=== PATIENT | female | born 1985 | race Caucasian/White ===

== ENCOUNTER → 2018-05-04 16:48 | Outpatient (CLI) | payer BC, SELFPAY ==
[2018-05-09 10:47] LABS: HPV APTIMA, High Risk Negative (Negative)
== END ==
PROVIDERS: Referring Provider Obstetrics & Gynecology; Visit Provider Obstetrics & Gynecology
DX: Z12.4 Encounter for screening for malignant neoplasm of cervix (principal)
CPT/HCPCS: 87624; 88175; G0145

== ENCOUNTER → 2019-04-30 17:02 | Outpatient (CLI) | payer BC, SELFPAY ==
[2019-04-30 11:57] VITALS: BMI 31.6
[2019-04-30 19:30] LABS: Chlamydia Trachomatis by PCR Negative (Negative); Neisserai gonorrhoeae by PCR Negative (Negative); Probe Check PASS; Sample Adequacy Control PASS; Specimen Processing Control PASS
== END ==
PROVIDERS: Family Provider Family Medicine Sports Medicine; PCP Family Medicine Sports Medicine; Referring Provider Obstetrics & Gynecology; Visit Provider Obstetrics & Gynecology
DX: Z34.90 Encounter for supervision of normal pregnancy, unspecified, unspecified trimester (principal)
CPT/HCPCS: 87086; 87088; 87491; 87591

== ENCOUNTER → 2019-05-17 15:06 | Outpatient (CLI) | payer BC, SELFPAY ==
[2019-05-17 14:45] VITALS: BMI 31.6
[2019-05-17 15:41] LABS: Absolute Lymphocyte Count 1.25 X10^3/uL (0.83-4.51); Absolute Neutrophil Count 5.5 X10^3/uL (2.0-7.7); Basophil# 0.03 X10^3/uL; Basophil% 0.4 % (0-1); Eosinophils% 1.3 % (0-5); Hematocrit 40.5 % (37-47); Hemoglobin 13.1 g/dL (12.0-15.0); Lymphocyte # 1.25 X10^3/ul (4.0); Lymphocyte % 16.9 % (19-41); Mean Corp Hgb Conc 32.3 g/dL (32-36); Mean Corpuscular Hgb 28.3 pg (27.0-32.0); Mean Corpuscular Volume 87.5 fL (81-99); Monocyte# 0.52 X10^3/uL; NRBC Flagged by Analyzer 0 % (0-5); Neutrophil % 74.3 % (47-70); Platelet Count 300 K/mm3 (150-450); RBC Distribution Width CV 13.1 % (11.6-14.6); RBC Distribution Width SD 42.1 fl (35.1-43.9); Red Blood Count 4.63 M/mm3 (4.2-5.4); White Blood Count 7.4 K/mm3 (4.4-11.0)
[2019-05-17 15:59] LABS: Glucose Challenge Gest 1H 50g 81 mg/dL (70-140)
[2019-05-18 10:07] LABS: HIV - WCH Non-Reactive (Nonreactive); Hepatitis B Surface Antigen Non-Reactive (Nonreactive); Rubella IgG 192.1 IU/mL
[2019-05-24 02:45] LABS: Rapid Plasmin Reagin (RPR) NONREACTIVE (NONREACTIVE)
== END ==
PROVIDERS: Family Provider Family Medicine Sports Medicine; PCP Family Medicine Sports Medicine; Referring Provider Obstetrics & Gynecology; Visit Provider Obstetrics & Gynecology
DX: O09.90 Supervision of high risk pregnancy, unspecified, unspecified trimester (principal); Z3A.00 Weeks of gestation of pregnancy not specified
CPT/HCPCS: 36415; 36430; 82950; 85025; 86592; 86703; 86762; 86850; 86870; 86880; 86900; 86901; 86905; 87340

== ENCOUNTER → 2019-05-30 11:24 | Outpatient (CLI) | payer BC, SELFPAY ==
[2019-05-17 14:45] VITALS: BMI 31.6
== END ==
PROVIDERS: Family Provider Family Medicine Sports Medicine; PCP Family Medicine Sports Medicine; Referring Provider Obstetrics & Gynecology; Visit Provider Obstetrics & Gynecology
DX: R76.0 Raised antibody titer (principal)

== ENCOUNTER → 2019-07-26 09:50 | Outpatient (CLI) | payer BC, SELFPAY ==
[2019-07-17 09:54] VITALS: BMI 31.6
[2019-07-26 10:44] LABS: Thyroid Stim Hormone (TSH) 2.91 uIU/mL (0.358-3.74)
== END ==
PROVIDERS: Nurse Practitioner Women's Health; Visit Provider Obstetrics & Gynecology
DX: E07.9 Disorder of thyroid, unspecified (principal)
CPT/HCPCS: 36415; 84439; 84443

== ENCOUNTER → 2019-08-16 09:50 | Outpatient (CLI) | payer BC, SELFPAY ==
[2019-08-16 09:25] VITALS: BMI 31.6
== END ==
PROVIDERS: Visit Provider Obstetrics & Gynecology
DX: R76.0 Raised antibody titer (principal)
CPT/HCPCS: 36415

== ENCOUNTER → 2019-09-17 10:05 | Outpatient (CLI) | payer BC, SELFPAY ==
[2019-09-13 09:11] VITALS: BMI 31.6
[2019-09-17 10:37] LABS: Absolute Neutrophil Count 8.7 X10^3/uL (2.0-7.7); Basophil# 0.03 X10^3/uL; Basophil% 0.3 % (0-1); Eosinophil# 0.07 X10^3/uL; Eosinophils% 0.7 % (0-5); Hematocrit 37.1 % (37-47); Lymphocyte % 11.2 % (19-41); Mean Corp Hgb Conc 32.3 g/dL (32-36); Mean Corpuscular Hgb 29.9 pg (27.0-32.0); Mean Corpuscular Volume 92.5 fL (81-99); Mean Platelet Vol. 9.5 fl (6.2-12.0); Monocyte# 0.68 X10^3/uL; Monocyte% 6.3 % (0-10); NRBC Flagged by Analyzer 0 % (0-5); Neutrophil # 8.65 X10^3/uL (2.7-7.7); Neutrophil % 80.6 % (47-70); Platelet Count 252 K/mm3 (150-450); RBC Distribution Width CV 13.9 % (11.6-14.6); RBC Distribution Width SD 46.9 fl (35.1-43.9); Red Blood Count 4.01 M/mm3 (4.2-5.4); White Blood Count 10.7 K/mm3 (4.4-11.0)
[2019-09-17 10:48] LABS: Glucose Challenge Gest 1H 50g 95 mg/dL (70-140)
== END ==
PROVIDERS: Referring Provider Obstetrics & Gynecology; Visit Provider Obstetrics & Gynecology
DX: Z34.90 Encounter for supervision of normal pregnancy, unspecified, unspecified trimester (principal)
CPT/HCPCS: 36415; 82950; 85025

== ENCOUNTER → 2019-09-27 09:36 | Outpatient (CLI) | payer BC, SELFPAY ==
[2019-09-27 09:03] VITALS: BMI 31.6
== END ==
PROVIDERS: Referring Provider Obstetrics & Gynecology; Visit Provider Obstetrics & Gynecology
DX: O36.1990 Maternal care for other isoimmunization, unspecified trimester, not applicable or unspecified (principal); Z3A.00 Weeks of gestation of pregnancy not specified
CPT/HCPCS: 36415

== ENCOUNTER → 2019-10-08 09:26 | Outpatient (CLI) | payer BC, SELFPAY ==
[2019-09-27 09:03] VITALS: BMI 31.6
== END ==
PROVIDERS: Referring Provider Obstetrics & Gynecology; Visit Provider Obstetrics & Gynecology
DX: O36.1990 Maternal care for other isoimmunization, unspecified trimester, not applicable or unspecified (principal); Z3A.00 Weeks of gestation of pregnancy not specified
CPT/HCPCS: 36415

== ENCOUNTER → 2019-11-08 16:09 | Outpatient (CLI) | payer BC, SELFPAY ==
[2019-11-08 09:30] VITALS: BMI 31.6
== END ==
PROVIDERS: Referring Provider Obstetrics & Gynecology; Visit Provider Obstetrics & Gynecology
DX: Z34.93 Encounter for supervision of normal pregnancy, unspecified, third trimester (principal); Z3A.36 36 weeks gestation of pregnancy
CPT/HCPCS: 87081

== ENCOUNTER 2019-11-16 10:55 | Outpatient (CLI) | payer BC, SELFPAY ==
[2019-11-08 09:30] VITALS: BMI 31.6
[2019-11-16 11:17] VITALS: BP 125/77; PULSE 75
[2019-11-16 11:19] VITALS: TEMP 36.8
[2019-11-16 11:23] VITALS: BMI 36.6
[2019-11-16] MEDS: Lactated Ringers 1,000 ML 125 ML IV (11:39)
[2019-11-16 13:35] VITALS: BP 121/81; PULSE 78
[2019-11-16] MEDS: Terbutaline 1 MG/ML Vial 0.25 MG SC (13:35)
--- NOTE | 2019-11-16 14:24 | OB.TRI.PN ---
Progress Notes Date of Service: 11/16/19 Progress Note: originally schedule for version but spontaneously converted to vertex
== END 2019-11-16 14:10 | disposition home or self-care (01) ==
LOC: WPOUT 11:00 → WP 13:48
PROVIDERS: Referring Provider Obstetrics & Gynecology; Visit Provider Obstetrics & Gynecology
DX: O32.1XX0 Maternal care for breech presentation, not applicable or unspecified (principal); Z53.8 Procedure and treatment not carried out for other reasons; Z3A.00 Weeks of gestation of pregnancy not specified
CPT/HCPCS: 96360; 96361; 59050; 59412; 86850; 86870; 86900; 86901; 86902; 86920; 86922; 96372; 99218; J7120; G0378

== ENCOUNTER 2019-11-28 18:40 | Inpatient (IN) | payer BC, SELFPAY ==
[2019-11-23 09:22] VITALS: BMI 36.6
[2019-11-28 19:25] VITALS: BMI 37.4
[2019-11-28 20:24] VITALS: BP 130/78; PULSE 73; TEMP 37.2; O2SAT 98
[2019-11-28] MEDS: miSOPROStol 25 MCG TABLET VAGINAL (20:26)
[2019-11-28 21:14] LABS: Absolute Lymphocyte Count 1.61 X10^3/uL (0.83-4.51); Basophil# 0.03 X10^3/uL; Basophil% 0.3 % (0-1); Eosinophil# 0.11 X10^3/uL; Eosinophils% 1.2 % (0-5); Hematocrit 36.5 % (37-47); Hemoglobin 11.8 g/dL (12.0-15.0); Lymphocyte # 1.61 X10^3/ul (4.0); Lymphocyte % 16.9 % (19-41); Mean Corp Hgb Conc 32.3 g/dL (32-36); Mean Corpuscular Volume 92.9 fL (81-99); Mean Platelet Vol. 11.3 fl (6.2-12.0); Monocyte# 0.67 X10^3/uL; NRBC Flagged by Analyzer 0 % (0-5); Neutrophil # 7.02 X10^3/uL (2.7-7.7); Neutrophil % 73.9 % (47-70); Platelet Count 261 K/mm3 (150-450); RBC Distribution Width CV 13.8 % (11.6-14.6); RBC Distribution Width SD 46.8 fl (35.1-43.9); Red Blood Count 3.93 M/mm3 (4.2-5.4); White Blood Count 9.5 K/mm3 (4.4-11.0)
--- NOTE | 2019-11-28 23:02 | PCM.HPOB.BLA ---
- Problem List (1) Advanced maternal age (AMA) in Status: Acute Comment: genetic counseling provided, third trimester screening planned. (2) Antiphospholipid antibody positive Status: Acute Comment: due to high level- mfm recommended 40mg lovenox and 81 mg baby ASA in ,growth US q4w, 18 weeks MFM detailed anatomic US with MCV PSV. 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 paternal JKA Ag positive. discussed risks and plan MCA dopplers if titers is 1:16 or above (5) Status: Acute Qualifiers: Comment: nipt-low risk, carrier. afp declined. anatomy reviewed, Growth US @ 36 weeks normal (6) Supervision of high risk , antepartum Status: Acute Comment: PRR WILLEM 12/05/19 PC Deirdre Rivera Srinath (7) Thyroid disorder Status: Acute Comment: check tsh free t4 q trimester. on synthroid. positive for multiple antibodies. s/p MFM. at risk for graves disease, will review with pediatricians for delivery and follow up History and Physical Date of Admission: 11/28/19 Intake Vital Signs 11/23/19 Height 5 ft 7 in 11/23/19 Weight: 238 lb 11/23/19 BMI 37.3 11/23/19 BP 128/74 H Intake Visit Reasons: 38 WK OB/NST Die Cleaner Required: No Is patient in pain?: No Allergies No Known Allergies Allergy (Verified 11/23/19 09:16) Medications ferrous sulfate 325 mg (65 mg iron) tablet 325 mg PO DAILY 04/30/19 [History Confirmed 11/23/19] vitamin#30 30 mg iron-10 mg iron-folic acid 1 mg-omg3 capsule cap PO cap 04/30/19 [History Confirmed 11/23/19] enoxaparin 40 mg/0.4 mL subcutaneous syringe 40 mg SC DAILY 90 Days #36 ml 08/31/19 [Rx Confirmed 11/23/19] aspirin 81 mg chewable tablet 81 mg PO DAILY 09/13/19 [History Confirmed 11/23/19] levothyroxine 150 mcg tablet 150 mcg PO DAILY #90 tab 04/07/20 [Rx Confirmed 11/23/19] Last Menstral Period: 02/28/19 Zika: Zika virus screening: Negative : No PFSH PFSH Medical History Thyroid disorder (Acute) Kidney donor (Acute) Antiphospholipid antibody positive (Acute) Family History Mother CVA (cerebral vascular accident) Father Hypertension Social History (Updated 11/23/19 @ 12:[address] Alicia Workman MD) Smoking Status: Never smoker alcohol intake: never substance use type: does not use caffeine: Yes what type of physical activity do you participate in: walking seatbelt use: always do you feel safe at home: Yes additional social history: Srinath Pregancy History 4 Elective abortions Hx Para 2 Spontaneous abortions 1 Hx # Term Pregnancies 2 Ectopic pregnancies Hx # Pregnancies Multiple births # of living children 2 Past Pregnancies Del. Date Name GA/Weeks Outcome Route Bth Weight Infant Gen Labor Lgth Anesthesia Del Locatn Provider FOB Unknown 2016 Nicole 40 live - full term 7lbs 1oz Male DARY 01/28/10 Deirdre live - full term 6 13 Delivery Date: On 05/07/19 @ 06:48 Alicia Workman precipitous delivery, on asa for antibody positive Delivery Date: 01/28/10 On 05/17/19 @ 15:02 Alicia Workman iol dec fm HPI 38 WK OB/NST: Details: CHET GASCA is a 34 year old presents at 39 weeks for induction of labor secondary to antiphospholipid antibody positive. She has had a that was controlled with Lovenox and baby aspirin. She had a red blood cell antibody that was positive however repeat titers were normal to negative. She was co-managed with maternal- medicine throughout the and had reassuring testing. OB Visit WILLEM Calculator Estimated Delivery Date Method Current WG Current Estimate 12/05/19 LMP (Certain) 39 Expected Delivery Route/Plan Labor Preferences- labor support person: [] pain management options preferred: [] cut cord/dad catch: [] : [] PP control planned: [] discussed possible routes of delivery and associated risks: [] special requests: [] Specific Issue/Plans flu vaccine: given tdap vaccine: given rhogam: na LARC form signed: declined movement and labor precautions reviewed. Problem list reviewed and updated with the most current plan of care details and appropriate orders placed. Relevant counseling for the gestational age provided. Continue routine care and follow up unless otherwise noted in visit notes/problem list details Initial Weight: Not Recorded Date EGA Weight BP Urine Prot Glucose FHR FuHt Pres Dilation Effaced St Visit Note 05/17/19 11w 1d 204 lb 6 oz 106/80 Negative Negative 150 06/19/19 15w 6d 209 lb 115/73 Negative Negative 150 Extensive patient counseling regarding antibodies and recommendations per maternal- medicine. Follow-up phone call done to discuss all of these and completion after I had a verbal confirmation of the plan with maternal- medicine. no vb cramping 07/17/19 19w 6d 209 lb 2 oz 110/78 Negative Negative 147 No Vb, lof. Good FM. Saw MFM-titer pending. Will get results and check to see if thyroid labs done. Next US 08/02. 08/16/19 24w 1d 217 lb 124/76 Negative Negative 145 SM- no vb lof good fm no regular ctx. check antibody levels. s/p mfm consult. 09/13/19 28w 1d 225 lb 118/74 145 28 SM- no vb lof good fm no regular ctx, waiting to see what cost of antibody testing is. 09/27/19 30w 1d 226 lb 122/72 Negative Negative 145 30 SM- no vb lof good fm no regular ctx tdap today. check blood antibodies. 10/11/19 32w 1d 228 lb 6 oz 118/66 Negative Negative 10/25/19 34w 1d 232 lb 122/78 Negative Negative 140 MH-reactive NST. Good FM. No VB, LOF. MF US is schedule. 11/01/19 35w 1d 234 lb 2 oz 130/78 Negative Negative 140 SM- no vb lof good fm no regular ctx 11/08/19 36w 1d 235 lb 2 oz 130/78 Negative Negative 140 SM- no vb lof good fm no regular ctx 11/23/19 38w 2d 238 lb 128/74 Negative Negative 120 38 SM- no vb lof good fm no regular ctx Notes Visit Date: 11/23/19 ??No visit notes to display Visit Date: 11/08/19 ??No visit notes to display Visit Date: 11/01/19 ??No visit notes to display Visit Date: 10/25/19 ??No visit notes to display Visit Date: 10/11/19 ??No visit notes to display Visit Date: 09/27/19 ??No visit notes to display Visit Date: 09/13/19 ??No visit notes to display Visit Date: 08/16/19 ??No visit notes to display Visit Date: 07/17/19 ??No visit notes to display Visit Date: 06/19/19 ??Extensive patient counseling regarding antibodies and recommendations per maternal- medicine. Follow-up phone call done to discuss all of these and completion after I had a verbal confirmation of the plan with maternal- medicine. no vb cramping ??Alicia Workman MD on 06/24/19 Visit Date: 05/17/19 ??No visit notes to display ACOG First Trimester First Trimester: Second Trimester Second Trimester: Signs and Symptoms of Labor, Selecting a care provider, Reproductive Life Planning, Care Planning, Tobacco Cessation, Depression/Anxiety and Intimate Partner Violence Third Trimester Third Trimester: Pain Management Plans, Labor support person(s), Immediate Larc, Movement Monitoring and Feeding Yes ; discussed Trial of Labor after Counseling or discussed Circumcision preference Diagnostics Diagnostics Diagnostics Blood Type O POSITIVE 11/16/19 Antibody Screen POSITIVE H 11/16/19 Glucose 1 Hr 50 gm 95 mg/dL (70-140) 09/17/19 Hgb 12.0 g/dL (12.0-15.0) 09/17/19 Hct 37.1 % (37-47) 09/17/19 Details: HIV: Urine Culture: Sequential Screen: NIPT Screen: ROS Const Reports system reviewed and no additional complaints, except as docu Card Reports system reviewed and no additional complaints, except as docu Resp Reports system reviewed and no additional complaints, except as docu GI Reports system reviewed and no additional complaints, except as docu, Reports nausea Reports system reviewed and no additional complaints, except as docu Musc Reports system reviewed and no additional complaints, except as docu Exam Const General: cooperative, healthy appearing, comfortable, anxious HENMT Head: normal to inspection Nose: external nose normal Face and sinus: normal facial exam Neck Neck: normal visual inspection, full ROM, no lymphadenopathy Thyroid: thyroid normal Chest Chest palpation & inspection: normal inspection of the chest Resp Effort & Inspection: normal respiratory effort GI Inspection: normal to inspection Palpation: soft, other (gravid uterus) Other: vertex and appropriate size for gestational age Other: Cervical Exam: Extrem General: pedal edema Office Procedures OB NST Non-Stress Test Indications for Monitoring: Yes other (apl antibodies) Heart Rate Baseline: 120 Heart Rate Variability: moderate Movement: Present Heart Rate Accelerations: Present Decelerations: Absent Contractions: Absent Impression: Yes Reactive Non-Stress Test Category 1 Results POC Urinalysis 2 Dip (Clinic) Office Urine Glucose Negative Last Edit by Perlita Linda on 11/23/19 09:22 Office Urine Protein Negative Last Edit by Perlita Linda on 11/23/19 09:22 Assessment & Plan Problems 1. Supervision of high risk , antepartum O09.90 2. 38 weeks gestation of Z3A.38 3. Antiphospholipid antibody positive R76.0 4. Advanced maternal age (AMA) in 5. Kidney donor Z52.4 6. Thyroid disorder E07.9 7. Maternal atypical antibody affecting in third trimester, single or unspecified fetus O36.1930 34-year-old G4, P2 at 39 weeks presents for induction of labor secondary to antiphospholipid antibody Cytotec induction of labor AROM when able Epidural if desired Last Lovenox dose 9 AM yesterday. anti JKA antibody positive- blood products on hold Orders Orders: POC Urinalysis 2 Dip (Clinic) Today OB NST Today [id number], O36.1930, R76.0 Coding Level of Care Code OB Routine Diagnoses Supervision of high risk , antepartum O09.90 38 weeks gestation of Z3A.38 ??Weeks of gestation: 38 weeks Antiphospholipid antibody positive R76.0 Advanced maternal age (AMA) in Kidney donor Z52.4 Thyroid disorder E07.9 Maternal atypical antibody affecting in third trimester, single or unspecified fetus O36.1930 ??Fetus number: single or unspecified fetus ??Trimester: third trimester Additional Codes Non-Stress Test (22462) UPDATE- I have seen the patient and performed any clinically relevant updates to the history and physical exam. Alicia Workman MD
[2019-11-28 23:59] VITALS: O2SAT 98
[2019-11-29] VITALS (30 sets, daily range): BP systolic 111–147; BP diastolic 60–87; PULSE 53–101; RESP 16–18; TEMP 36.2–37.2; O2SAT 95–100
[2019-11-29] MEDS: Lactated Ringers 500 ML 999 ML IV (00:51)
[2019-11-29] MEDS: Lactated Ringers 1,000 ML 50 ML IV (01:22)
[2019-11-29] MEDS: Oxytocin 30 units/NS 500 ml 30 UNITS/500 ML IV.SOLN IV (03:30)
[2019-11-29] MEDS: Oxytocin 30 units/NS 500 ml 30 UNITS/500 ML IV.SOLN 334 UNITS IV (10:50)
--- NOTE | 2019-11-29 11:14 | OP.PCM_ITS ---
Problem List (1) Advanced maternal age (AMA) in Status: Acute Comment: genetic counseling provided, third trimester screening planned. (2) Antiphospholipid antibody positive Status: Acute Comment: due to high level- mfm recommended 40mg lovenox and 81 mg baby ASA in ,growth US q4w, 18 weeks MFM detailed anatomic US with MCV PSV. 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 paternal JKA Ag positive. discussed risks and plan MCA dopplers if titers is 1:16 or above (5) Status: Acute Qualifiers: Comment: nipt-low risk, carrier. afp declined. anatomy reviewed, Growth US @ 36 weeks normal (6) Supervision of high risk , antepartum Status: Acute Comment: PRR WILLEM 12/05/19 PC Deirdre Rivera Srinath (7) Thyroid disorder Status: Acute Comment: check tsh free t4 q trimester. on synthroid. positive for multiple antibodies. s/p MFM. at risk for graves disease, will review with pediatricians for delivery and follow up Report of Operation Date of Procedure: 11/29/19 Pre-Operative Diagnosis: iol Vaginal Delivery Maternal Presentation: Medically Indicated Induction iol apl antibody positive Amniotic Membrane Rupture Type: Artificial Amniotic Fluid Description: Clear Final WILLEM: 12/05/19 Gestational age: 39 Weeks and 1 Days Date of Procedure: 11/29/19 Pre-Operative Diagnosis: iol apl antibodies Post-Operative Diagnosis: same Surgery/ Procedure Performed: Spontaneous Vaginal Delivery Type of Anesthesia: Local with 1% lidocaine Description of Procedure: Patient began pushing and delivered the head in the KAYLI presentation. The head was delivered atraumatically . The anterior and posterior shoulders delivered without complication followed by the rest of the and the infant was placed on the maternal abdomen. Delayed cord clamping was employed for approximately 60 seconds. Cord was clamped and cut and gentle traction was applied to the cord and the placenta delivered spontaneously immediately following it was noted to be intact with three-vessel cord. The perineum and vagina were inspected and noted to have a small first-degree perineal laceration and a small right vaginal laceration first-degree that was repaired in the usual fashion with 3-0 Vicryl Rapide. EBL was 200 cc. Patient and infant tolerated delivery well. Presentation: KAYLI Placental Delivery Description: Spontaneous Placenta Disposition: [facility] Cord Vessel Description: 3 Vessels Cord Entanglement: None Estimated Blood Loss: 200 A gender: Female Episiotomy Description: None Laceration: Perineal Extension/lac, 1st degree Medications given after delivery: IV Pitocin Complications: None Multi Select Codes - Urinary/Genital Urinary/Genital CPT Codes: 82332 Vaginal Delivery [facility]
[2019-11-30 04:31] VITALS: BP 130/87; PULSE 60; RESP 18; TEMP 37
[2019-11-30 04:32] VITALS: BP 130/87; PULSE 51
--- NOTE | 2019-11-30 05:03 | DCINST_ITS ---
Discharge Diet: No Restrictions Discharge Activity: Return to Normal Activity, May not drive while taking narcotic pain medications., May Shower May resume sexual activity in: 4-6 weeks Call your doctor if your incision/area has: Continuous Slow Oozing, Sudden Increased Bleeding, Increased Pain/ Swelling, Increased Redness, Foul Smelling Discharge Additional Instructions: If you experience any of the following, contact your healthcare provider. * Bleeding that soaks a pad every hour for 2 hours * Fever 100.4 or higher * Unrelieved incision or abdominal pain * Swelling, redness, discharge or bleeding from your incision or episiotomy site * Your incision begins to separate * Problems urinating (including inability to urinate or burning while urinating). * Visual changes * Severe headache * Flu-like symptoms * Pain or redness in one of both of your breasts * Pain, warmth, tenderness or swelling in your legs, especially the calf area * Frequent nausea and vomiting * Symptoms of depression or anxiety If you experience any of the following, call 911 or go to the nearest Emergency Room. * Chest pain * Problems breathing * Seizure activity * Partial or complete paralysis of a body part, slurred speech, weakness or drooping of the face, or a sudden inability to walk or hold your balance Allergies/Adverse Reactions: Allergies No Known Allergies Allergy (Verified 11/23/19 09:16) Medications to take at Discharge ferrous sulfate 325 mg (65 mg iron) tablet 325 mg PO DAILY 04/30/19 vitamin#30 30 mg iron-10 mg iron-folic acid 1 mg-omg3 capsule 1 tablet PO DAILY cap 04/30/19 aspirin 81 mg chewable tablet 81 mg PO DAILY 09/13/19 Enoxaparin Sodium [Lovenox] 40 mg SUBCUT DAILY 11/28/19 Levothyroxine Sodium [Synthroid] 150 mcg PO DAILY 11/28/19 Please Follow Up With: Alicia Workman MD - [phone] When: Call to make an appointment with your doctor in 6 weeks. If you had elevated Blood pressure or 4th degree laceration you will need to be seen in 2 weeks. Primary Care Physician: ALEXY BARRETT [Other] Test Results: Test results from this visit will be discussed in further detail at your follow- up appointment, if applicable.
--- NOTE | 2019-11-30 05:03 | PCM.PN.OB ---
Subjective: doing well no complaints pain controlled no CP SOB N V ambulating well tolerating po lochia moderate, going well - Physical Exam Vitals/I&O's: Vital Signs Temp Pulse Resp BP Pulse Ox 98.6 F 51 L 18 130/87 H 95 11/30/19 04:31 11/30/19 04:32 11/29/19 23:30 11/30/19 04:32 11/29/19 15:40 Oxygen Delivery Method Room Air Weight: 239 lb 3.2 oz Body Mass Index (BMI) 37.4 Intake and Output for Last 24 Hours 11/28/19 11/29/19 11/30/19 23:59 23:59 23:59 Intake Total 1980 Output Total 125 / 125 Balance 1856 / 185 General: Alert, Oriented x3 Current Medications Acetaminophen (Tylenol) 1,000 mg PO Q8H PRN PRN PRN Reason: Pain Score 1-3/10 Bisacodyl (Dulcolax) 10 mg RECTAL UD PRN PRN Reason: If no BM Dibucaine (Dibucaine) 1 applic TOPICAL TID PRN PRN; Protocol PRN Reason: Discomfort Hydrocortisone (Hytone) 1 applic TOPICAL TID PRN PRN; Protocol PRN Reason: Discomfort Levothyroxine Sodium (Synthroid) 150 mcg PO DAILY@0600 ROMIE Methylergonovine Maleate (Methergine) 0.2 mg IM X1 PRN PRN Reason: Excess bleeding/uterine atony Ondansetron HCl (Zofran) 4 mg IV Q4H PRN PRN PRN Reason: Nausea Oxycodone HCl (Oxyir) 5 - 10 mg PO Q4H PRN PRN PRN Reason: Pain Score 4-10/10 Multivit/Folic Acid/Iron (Prenatabs Fa) 1 tablet PO DAILY ROMIE Senna/Docusate Sodium (Senokot-S, Mackenzie-Colace) 1 - 2 tablet PO DAILY PRN PRN PRN Reason: Constipation Simethicone (Mylicon) 80 mg PO PCHS PRN PRN Reason: Indigestion/Stomach pain Sodium Chloride () 5 - 15 ml IV UD PRN PRN Reason: SALINE FLUSH Medical Necessity - Tobacco Use Smoking Status: Never smoker Assessment/Plan All Active Problems (Last Reviewed 11/23/19 @ 09:16 by Perlita Linda) Maternal atypical antibody complicating (Acute) Thyroid disorder (Acute) Kidney donor (Acute) Advanced maternal age (AMA) in (Acute) Antiphospholipid antibody positive (Acute) (Acute) Supervision of high risk , antepartum (Acute) Breech presentation of fetus (Resolved) s/p PPD # 1 1. routine post delivery care 2. breast feeding- support given 3. rh positive 4. rubella immune
[2019-11-30] MEDS: Levothyroxine 150 MCG Tablet PO (05:53)
[2019-11-30 07:35] VITALS: TEMP 36.9
[2019-11-30 07:36] VITALS: BP 108/73; PULSE 65
[2019-11-30 07:39] VITALS: BP 108/73; PULSE 65; RESP 18; TEMP 36.9; O2SAT 98
[2019-12-01 08:20] VITALS: BP 148/84; PULSE 93; O2SAT 98
[2019-12-01 08:39] VITALS: TEMP 37.1
[2019-12-01 10:09] VITALS: BP 127/73; PULSE 95; O2SAT 97
[2019-12-01 10:10] VITALS: TEMP 36.5
== END 2019-11-30 12:00 | disposition home or self-care (01) | DRG 806 ==
PROVIDERS: Admitting Provider Obstetrics & Gynecology; Visit Provider Obstetrics & Gynecology
DX: O99.12 Other diseases of the blood and blood-forming organs and certain disorders involving the immune mechanism complicating childbirth (principal); D68.61 Antiphospholipid syndrome; O99.284 Endocrine, nutritional and metabolic diseases complicating childbirth; E07.9 Disorder of thyroid, unspecified; O70.0 First degree perineal laceration during delivery; Z52.4 Kidney donor; Z79.01 Long term (current) use of anticoagulants; Z79.899 Other long term (current) drug therapy; Z3A.39 39 weeks gestation of pregnancy; Z37.0 Single live birth
CPT/HCPCS: 59025; 59050; 85025; 86850; 86870; 86900; 86901; 86902; 86920; 86922; 99218; J7120; G0378